=== PATIENT | female | born 1990 ===

== ENCOUNTER 2021-02-23 13:51 | Outpatient (CLI) | payer OTHER ==
[2021-02-24 01:49] LABS: SARS-CoV-2 PCR by NAA Not Detected (NotDetected)
== END 2021-02-23 13:52 | disposition home or self-care (01) ==
LOC: LABBT 13:51
PROVIDERS: ATTEND Internal Medicine Gastroenterology
DX: Z01.812 Encounter for preprocedural laboratory examination (principal); Z20.822 Contact with and (suspected) exposure to COVID-19
CPT/HCPCS: 87635; U0003; U0005